=== PATIENT | female | born 1990 | race Caucasian/White ===

== ENCOUNTER 2019-01-24 20:34 | Emergency (ER) | payer MEDICAID ==
[~2019-01-24] VITALS: Ht 160 cm; Wt 49.9 kg
[2019-01-24 20:40] VITALS: BP_SYST 137
[2019-01-24 23:29] VITALS: BP_SYST 129
== END 2019-01-24 23:29 | disposition home or self-care (01) ==
LOC: SED 20:34
DX: F31.9 Bipolar disorder, unspecified (principal); J45.909 Unspecified asthma, uncomplicated; Z76.0 Encounter for issue of repeat prescription
CPT/HCPCS: 99283

== ENCOUNTER 2019-02-10 03:27 | Emergency (ER) | payer MEDICAID ==
[~2019-02-10] VITALS: Ht 160 cm; Wt 49.9 kg
[2019-02-10 03:35] VITALS: BP_SYST 128
[2019-02-10] MEDS ORDERED: DIVALPROEX SODIUM 250 MG TABLET(DEPAKOTE) PO ONE (04:00)
[2019-02-10 04:01] VITALS: BP_SYST 129
== END 2019-02-10 04:01 | disposition home or self-care (01) ==
LOC: SED 03:27
DX: G40.909 Epilepsy, unspecified, not intractable, without status epilepticus (principal); Z76.0 Encounter for issue of repeat prescription; F31.9 Bipolar disorder, unspecified; J45.909 Unspecified asthma, uncomplicated
CPT/HCPCS: 99283

== ENCOUNTER 2019-04-02 23:28 | Emergency (ER) | payer MEDICAID ==
[~2019-04-02] VITALS: Ht 160 cm; Wt 53.1 kg
[2019-04-02 23:30] VITALS: BP_SYST 119
--- NOTE | 2019-04-02 23:35 | NUR ---
Patient to ER bed 8 to gown for evaluation. Side rails up. Report given to ADONIS RESENDIZ.
--- NOTE | 2019-04-02 23:43 | NUR ---
ER at bedside examining patient.
--- NOTE | 2019-04-02 23:57 | NUR ---
Patient given written and verbal discharge instructions and verbalizes understanding. ER MD discussed with patient the results and treatment provided. Patient in stable condition. ID arm band removed. Rx of DEPAKOTE given. Patient educated on pain management and to follow up with PMD. Pain Scale 0/10. Opportunity for questions provided and answered. Medication side effect fact sheet provided.
[2019-04-03] VITALS: BP_SYST 115
== END 2019-04-03 | disposition home or self-care (01) ==
LOC: SED 23:28
DX: Z76.0 Encounter for issue of repeat prescription (principal); F31.9 Bipolar disorder, unspecified; J45.909 Unspecified asthma, uncomplicated; Z87.891 Personal history of nicotine dependence
CPT/HCPCS: 99283